=== PATIENT | male | born 1970 | race Caucasian/White ===

== ENCOUNTER 2020-03-10 10:03 | Day surgery (SDC) | payer OTHER ==
[2020-03-05 10:15] LABS: HEMATOCRIT 48.5 % (37.9-51.0); HEMOGLOBIN 16.5 g/dL (13.5-17.0); MEAN CORPUSCULAR HEMOGLOBIN 28.7 pg (27.0-33.4); MEAN CORPUSCULAR HGB CONC 34.1 g/dL (32.0-36.0); MEAN CORPUSCULAR VOLUME 84 fl (80-97); PLATELET COUNT 242 10^3/uL (150-450); RED BLOOD COUNT 5.77 10^6/uL (4.35-5.55); RED CELL DISTRIBUTION WIDTH 13.2 % (11.5-14.0); WHITE BLOOD COUNT 6.7 10^3/uL (4.0-10.5)
[2020-03-05 10:18] LABS: APPEARANCE,URINE CLEAR; BILIRUBIN,URINE NEGATIVE (NEGATIVE); COLOR,URINE YELLOW; GLUCOSE, URINE NEGATIVE (NEGATIVE); KETONES,URINE NEGATIVE (NEGATIVE); LEUKOCYTE ESTERASE,URINE NEGATIVE (NEGATIVE); NITRITE,URINE NEGATIVE (NEGATIVE); PROTEIN,URINE NEGATIVE (NEGATIVE); URINE SPECIFIC GRAVITY 1.026; UROBILINOGEN,URINE NEGATIVE mg/dL (<2.0)
[2020-03-05 10:43] LABS: ANION GAP 9 (5-19); BLOOD UREA NITROGEN 18 mg/dL (7-20); CALCIUM 9.8 mg/dL (8.4-10.2); CARBON DIOXIDE 24 mmol/L (22-30); CHLORIDE 107 mmol/L (98-107); GLUCOSE 128 mg/dL (75-110); POTASSIUM 4.2 mmol/L (3.6-5.0)
--- NOTE | 2020-03-05 10:44 | RADIOLOGY REPORT (SQ) ---
EXAM DESCRIPTION: CHEST PA/LATERAL IMAGES COMPLETED DATE/TIME: 03/05/2020 10:30 am REASON FOR STUDY: PREOP COMPARISON: None. EXAM PARAMETERS: NUMBER OF VIEWS: two views TECHNIQUE: Digital Frontal and Lateral radiographic views of the chest acquired. RADIATION DOSE: NA LIMITATIONS: none FINDINGS: LUNGS AND PLEURA: No opacities, masses or pneumothorax. No pleural effusion. MEDIASTINUM AND HILAR STRUCTURES: No masses or contour abnormalities. HEART AND VASCULAR STRUCTURES: Heart normal size. No evidence for failure. BONES: No acute findings. HARDWARE: None in the chest. OTHER: No other significant finding. IMPRESSION: NO SIGNIFICANT RADIOGRAPHIC FINDING IN THE CHEST. TECHNICAL DOCUMENTATION: JOB ID: [id number] 2010 [employer]- All Rights Reserved Reading location - IP/workstation name: [email or web address]
--- NOTE | 2020-03-06 09:18 | EKG REPORT ---
SEVERITY:- ABNORMAL ECG - SINUS RHYTHM PROBABLE LEFT ATRIAL ABNORMALITY INCOMPLETE RIGHT BUNDLE BRANCH BLOCK : Confirmed by: Chandrakant Salinas 06-Mar-2020 09:17:55
[~2020-03-10 10:03] MED LIST: CEFAZOLIN 2 GM/D5W RTU 2 GM/50 ML RTUPB IV ONE; CEFAZOLIN 2 GM/D5W RTU 2 GM/50 ML RTUPB IV PRN; FENTANYL CITRATE INJ/PF 100 MCG/2 ML AMPUL ONE; LACTATED RINGERS 1000 ML IV PRN; LIDOCAINE 0.5% INJ-PF (5 MG/ML) 50 ML SDV SUBCUT PRN; MIDAZOLAM 2 MG/2 ML INJ ONE; ONDANSETRON HCL INJ/PF 4 MG/2 ML SDV ONE; PROPOFOL INJ 200 MG/20 ML VIAL IV ONE
[2020-03-10] MEDS ORDERED: SUCCINYLCHOLINE CHLORIDE INJ 200 MG/10 ML VIAL ONE (12:50)
[2020-03-10] MEDS ORDERED: BUPIVACAINE HCL 0.25% /EPINEPHRINE INJ/PF 30 ML SDV ONE (14:36)
[2020-03-10] MEDS ORDERED: FENTANYL CITRATE INJ/PF 100 MCG/2 ML AMPUL IV PRN ×3 (14:47)
[2020-03-10] MEDS ORDERED: DIPHENHYDRAMINE HCL 50 MG/ML VIAL IV PRN (14:47)
[2020-03-10] MEDS ORDERED: MEPERIDINE HCL/PF INJ 25 MG/1 ML DISP.SYRIN IV PRN (14:47)
[2020-03-10] MEDS ORDERED: MORPHINE SULFATE 10 MG/ML INJ IV PRN (14:47)
[2020-03-10] MEDS ORDERED: PROMETHAZINE HCL INJ 25 MG/1 ML VIAL IV PRN ×2 (14:47)
[2020-03-10] MEDS ORDERED: ONDANSETRON HCL INJ/PF 4 MG/2 ML SDV IV PRN (14:47)
--- NOTE | 2020-03-10 15:12 | Operative Report ---
Operative Report DATE OF SURGERY: 03/10/20 PREOPERATIVE DIAGNOSIS: Left fifth metatarsal nonunion OPERATION: Takedown of left fifth metatarsal nonunion and an open reduction internal fixation SURGEON: MARIANA SINCLAIR ANESTHESIA: GA ESTIMATED BLOOD LOSS: Minimal PROCEDURE: With the patient on the operating table left lower extremities prepped and draped sterile fashion. Limb is elevated for exsanguination tourniquet inflated to 280 torr. Longitudinal incision is made over the anterolateral aspect of the left distal fifth metatarsal. Sharp dissection was carried incision to the bone. The bone is visualized and exposed. The nonunion is taken down with rondure. A Deeth 2.3 mm plate from the handset is then applied to the lateral surface of the fifth metatarsal and secured with 5 screws. Fracture reduction and hardware placement checked fluoroscopically and felt to be adequate. Tourniquet is deflated. Hemostasis obtained with electrocautery. The wound is irrigated bulb lavage. His closure interrupted Vicryl followed by nylon. A sterile compressive dressing posterior plaster splint are applied and the patient is returned to the PACU in satisfactory condition.
--- NOTE | 2020-03-10 15:16 | Discharge Summary ---
Discharge Summary (SDC) - Discharge Final Diagnosis: Left fifth metatarsal nonunion Date of Surgery: 03/10/20 Discharge Date: 03/10/20 Condition: Good Forms: ASU Anesthesia D/C Instruction, Discharge POC-Surgical Service Treatment or Instructions: Touchdown weightbearing restriction left lower extremity Prescriptions: Oxycodone HCl/Acetaminophen [Percocet 5-325 mg Tablet] 1 tab PO Q6 PRN #24 tab PRN Reason: Referrals: MARIANA SINCLAIR MD [ACTIVE STAFF] - 03/20/20 8:30 am Discharge Diet: Regular Respiratory Treatments at Home: Deep Breathing/Coughing Discharge Activity: Balance Activity w/Rest, No tub bath, Other - Touchdown weightbearing restriction left lower extremity Report the Following to Your Physician Immediately: Shortness of Breath, Fever over 101 Degrees, Drainage-Foul Smelling
--- NOTE | 2020-03-10 15:49 | RADIOLOGY REPORT (SQ) ---
EXAM DESCRIPTION: FOOT LEFT 2 VIEWS; NO CHG FLUORO IMAGES COMPLETED DATE/TIME: 03/10/2020 3:28 pm REASON FOR STUDY: ORIF LEFT FOOT/5TH METATARSAL ASSISTED WITH FLUORO IN OR S92.352A DISP FX OF FIFT H METATARSAL BONE, LEFT FOOT, INIT COMPARISON: None. FLUOROSCOPY TIME: 0.3 minutes Spot images saved to PACS. TECHNIQUE: Intra-operative images acquired during surgical procedure to evaluate progress. NUMBER OF IMAGES: 2 LIMITATIONS: None. FINDINGS: Fluoroscopy was provided for intraoperative procedure. Please refer to the operative repo rt for further discussion. IMPRESSION: IMAGE(S) OBTAINED DURING PROCEDURE. COMMENT: Quality ID [id number]: Final reports for procedures using fluoroscopy that document radiation exp osure indices, or exposure time and number of fluorographic images (if radiation exposure indices are not available) Please consult full operative report of the attending physician for description of the procedure. TECHNICAL DOCUMENTATION: JOB ID: [id number] 2010 [employer]- All Rights Reserved Reading location - IP/workstation name: [email or web address]
--- NOTE | 2020-03-10 15:49 | RADIOLOGY REPORT (SQ) ---
EXAM DESCRIPTION: FOOT LEFT 2 VIEWS; NO CHG FLUORO IMAGES COMPLETED DATE/TIME: 03/10/2020 3:28 pm REASON FOR STUDY: ORIF LEFT FOOT/5TH METATARSAL ASSISTED WITH FLUORO IN OR S92.352A DISP FX OF FIFT H METATARSAL BONE, LEFT FOOT, INIT COMPARISON: None. FLUOROSCOPY TIME: 0.3 minutes Spot images saved to PACS. TECHNIQUE: Intra-operative images acquired during surgical procedure to evaluate progress. NUMBER OF IMAGES: 2 LIMITATIONS: None. FINDINGS: Fluoroscopy was provided for intraoperative procedure. Please refer to the operative repo rt for further discussion. IMPRESSION: IMAGE(S) OBTAINED DURING PROCEDURE. COMMENT: Quality ID [id number]: Final reports for procedures using fluoroscopy that document radiation exp osure indices, or exposure time and number of fluorographic images (if radiation exposure indices are not available) Please consult full operative report of the attending physician for description of the procedure. TECHNICAL DOCUMENTATION: JOB ID: [id number] 2010 [employer]- All Rights Reserved Reading location - IP/workstation name: [email or web address]
[2020-03-10] MEDS ORDERED: OXYCODONE-ACETAMINOPHEN 5-325 MG TABLET PO PRN (16:01)
[2020-03-10] MEDS: FENTANYL CITRATE INJ/PF 100 MCG/2 ML AMPUL ONE ×2 (16:06→16:15)
[2020-03-10] MEDS ORDERED: OXYCODONE-ACETAMINOPHEN 5-325 MG TABLET ONE (16:39)
[2020-03-10 17:57] VITALS: BP 106/75
== END 2020-03-10 17:40 | disposition home or self-care (01) ==
LOC: OROUT 10:03
PROVIDERS: ATTEND Orthopaedic Surgery
DX: S92.352K Displaced fracture of fifth metatarsal bone, left foot, subsequent encounter for fracture with nonunion (principal); X58.XXXD Exposure to other specified factors, subsequent encounter; M79.672 Pain in left foot; Z87.891 Personal history of nicotine dependence
CPT/HCPCS: 93005; 36415; 85027; 87635; 80048; 81001; 71046; 73620; 93010; 28322; J2250; J3490; J3010; J2405; J2704; J0690; C9803; J0330